=== PATIENT | female | born 1995 | race Caucasian/White ===

== ENCOUNTER → 2022-11-14 08:59 | Outpatient (CLI) | payer MEDICAID, SELFPAY ==
[2022-11-14 09:19] LABS: Basophils # 0.1 K/mm3 (0-0.2); Basophils % 1.2 % (0.1-2.0); Eosinophils # 0.1 K/mm3 (0.0-0.4); Eosinophils % 1.1 % (0.1-12.0); Hematocrit 47.5 % (37.0-47.0); Hemoglobin 15.4 g/dL (12.2-16.2); Lymphocytes # 2.1 K/mm3 (0.7-4.5); Lymphocytes % 29.9 % (10-50); Mean Corpuscular HGB Conc 32.5 g/dL (31.8-35.4); Mean Corpuscular Hemoglobin 29.6 pg (27.0-31.2); Mean Corpuscular Volume 91.2 fl (81-99); Mean Platelet Volume 7.8 fl (7.4-10.4); Monocytes # 0.5 K/mm3 (0.1-1.0); Monocytes % 7.3 % (1.7-9.3); Neutrophils # 4.3 K/mm3 (1.8-7.8); Neutrophils % 60.5 % (37.0-80.0); Platelet Count 258 K/mm3 (142-424); Red Blood Count 5.21 M/mm3 (4.20-5.40); Red Cell Distribution Width 12.5 % (11.5-17.5); White Blood Count 7.2 K/mm3 (4.8-10.8)
--- NOTE | 2022-11-14 09:21 | ECG_ITS ---
APPROVED REPORT Exam: Resting ECG HR:70 bpm ECG Measurements Heart Rate 70 AXES ID 200 P 51 QRSd 85 QRS 100 QT 389 T 59 QTc 409 Conclusion SINUS RHYTHM BORDERLINE RIGHT AXIS DEVIATION [QRS AXIS > 90] EARLY REPOLARIZATION [ST ELEVATION WITH NORMALLY INFLECTED T-WAVE] BORDERLINE ECG UNCONFIRMED REPORT Electronically signed by : Julio Main MD 11/14/2022 20:19:18
--- NOTE | 2022-11-14 09:28 | XR_ITS ---
FINAL REPORT CLINICAL HISTORY: pre-op testing - cough COMPARISON: none FINDINGS: PA and lateral views of the chest were obtained. There is no prior exam for comparison. The cardiac and mediastinal silhouettes are within normal limits. The lungs are clear. There is no pleural effusion or pneumothorax. No acute osseous abnormality is identified. IMPRESSION: No radiographic evidence of acute cardiac or pulmonary disease. Reviewed, Interpreted and Dictated by January Monk MD Transcribed by Emily Herrera Authenticated and [facility]
[2022-11-14 10:29] LABS: Alanine Aminotransferase 19 U/L (12-78); Albumin Level 4.9 g/dl (3.5-5.0); Albumin/Globulin Ratio 1.6 (1.1-1.8); Alkaline Phosphatase 70 U/L (38-126); Anion Gap 11.4 mEq/L (5-15); Aspartate Amino Transferase 27 U/L (14-36); Bilirubin,Total 0.6 mg/dl (0.2-1.3); Blood Urea Nitrogen 12 mg/dl (7-17); Calcium 9.5 mg/dl (8.4-10.2); Carbon Dioxide 27 mmol/L (22.0-30.0); Chloride 102 mmol/L (98-107); Estimated Glomerular Filt Rate 77 ml/min (>60); GFR (African American) 93 ML/MIN (>60); Globulin 3.1 g/dL (1.3-3.2); Glucose 90 mg/dl (74-100); Potassium 4.4 mmoL/L (3.5-5.1); Sodium 136 mmol/L (136-145)
== END ==
PROVIDERS: Visit Provider Podiatrist
DX: Z01.818 Encounter for other preprocedural examination (principal)
CPT/HCPCS: 36415; 71046; 80053; 85025; 93005

== ENCOUNTER 2022-11-30 06:54 | Day surgery (SDC) | payer MEDICAID, SELFPAY ==
[2022-11-28 10:00] VITALS: BMI 26.3
[2022-11-30] VITALS (11 sets, daily range): BP systolic 112–140; BP diastolic 68–82; PULSE 75–114; RESP 16–18; TEMP 36.2–36.7; O2SAT 97–100
[2022-11-30 07:30] LABS: Urine Pregnancy, HCG Qual. Negative (Negative)
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
--- NOTE | 2022-11-30 10:01 | EXP.ANES.I ---
[facility] Anesthesia Record Part I Anesthesia Record I Intake, IV Amount: 1,100 Estimated blood loss (mL): 5 Urine output (mL): 0 Blood Products used (#): none Blood Pressure: 140/70 SaO2: 98 Pulse Rate: 110 Respiratory Rate: 16 Temperature: 97.9 F Patient is:: Drowsy Stable to PACU at:: 10:00
--- NOTE | 2022-11-30 10:09 | EXP.OP.NOTE ---
Date of procedure: 11/30/22 Pre-op Diagnosis:: Hallux Valgus deformity Right foot; Painful deformity Post-op Diagnosis:: Same Procedure performed:: Lapidus procedure with bunionectomy Right foot Surgeon:: Severo Rashid DPM Anesthesia: other (Popliteal block Right; refer to Anesthesia record) Estimated blood loss (mL): 5 Operative findings:: Expected: large medial eminence right first metatarsal; mild arthritis first metarsal-cuneiform level right Operative note:: Patient was seen in the preop holding area. Discussion with the patient to confirm the planned procedure of Lapidus procedure, Bunionectomy was performed and the Right foot was signed. All questions were answered to the patient's satisfaction. Patient was then evaluated by anesthesia department. Patient was wheeled to the operative room and placed on the operating table in the supine position. The operative site was clearly marked and then prepped and draped in the usual aseptic manner. Timeout was performed in the room and we confirmed the planned procedure and the patient and we all were in agreement. The attention was directed to the patient's surgical foot and Esmarch bandage used to exsanguinate the patient's foot and ankle and the tourniquet inflated to 250 mils mercury above the malleoli. A dorsal linear longitudinal incision was made from the metatarsal cuneiform joint following and medial with the extensor hallucis longus tendon to the dorsal aspect of the proximal hallux. Incision was deepened to subcutaneous tissues being careful to preserve and protect vital neurovascular structures and bleeders cauterized with the Bovie as necessary. Attention was directed to the first metatarsal phalangeal joint where a dorsal linear longitudinal capsulotomy was made medial and parallel with the extensor hallucis longus tendon. The medial eminence and dorsal head of the first metatarsal were remodeled with sagittal bone saw. At this point blunt and sharp dissection was carried down to the first interspace and the fibular sesamoid was freed of soft tissue attachments and performed a lateral capsulotomy. There was good range of motion noted at the first MPJ at this level. Attention now was directed to the metatarsal cuneiform joint which was dissected down to the joint capsule and freed of soft tissue attachments. Sagittal bone saw was used to resect portion of the metatarsal cuneiform joint carlitage and bone in the multiple planes. At this point the base of the metatarsal and the cuneiform were placed in proximity to each other with bleeding sides in a corrected position, corrected intermetatarsal angle, and fixation was accomplished using a cannulated screw and a speed staple. There is good alignment noted for the entire correction of the procedure and it was deemed to be appropriate for closure so irrigated the wound with copious amount of sterile normal saline and then closed in layers with 2-0 Vicryl 3-0 Vicryl and 3-0 nylon. Dressed the surgical wounds with Xeroform or Adaptic based on any allergy to Betadine. Then applied gauze and 4 x 4's Kerlix and an ABD bandage. Decision was to apply a well-padded posterior splint using Stockinette, Cast padding, 4 Orthoblast, and outer 4-6 elastic bandage, holding the foot at 90 degrees. Patient is today nonweightbearing on the affected side for upwards of 4 to 6 weeks. She has access to a knee scooter as well as crutches. I have written for postop prescription for Percocet as well as Phenergan. Patient has a follow-up in the office here at the [facility] in 1 week. Any other concerns or complications return to the office sooner or report to the nearest urgent treatment center or ER. Tourniquet time (min): 80 (80 minutes) Condition: stable Disposition: PACU Complications:: negative
--- NOTE | 2022-11-30 13:06 | EXP.ANES.II ---
[facility] [place] Anesthesia Record Part II Anesthesia Record Part II Discharge Time: 10:30 Destination: Surgical Day Care (OP Surgery) PACU nurse assessment reviewed?: Yes Patient Condition:: Good Anesthesia Complications:: None Swallowing reflex intact?: Yes Cyanosis?: No Blood Pressure: 129/70 Pulse Rate: 110 Temperature: 97.2 F Mental Status: Alert & Oriented Pain level:: 0 Nausea and/or vomitting:: Nauseated Intake, IV Amount: 0
== END 2022-11-30 11:20 | disposition home or self-care (01) ==
PROVIDERS: Visit Provider Podiatrist
PROC: (CPT 28297; principal; 2022-11-30 08:45)
DX: M20.11 Hallux valgus (acquired), right foot (principal); M79.671 Pain in right foot; Z87.891 Personal history of nicotine dependence; Z79.899 Other long term (current) drug therapy
CPT/HCPCS: 28297; 81025; 96374; C1713; C1734; J2405